=== PATIENT | female | born 1970 | race Caucasian/White ===

== ENCOUNTER 2021-10-29 09:25 | Emergency (ER) | payer SELFPAY ==
[2021-10-29 09:57] LABS: #Basophils 0.1 10x3/uL (0.0-0.2); #Eosinphils 0.1 10x3/uL (0.0-0.5); #Monocytes 0.5 10x3/uL (0.0-1.1); #Neutrophils 4.1 10x3/uL (1.5-8.4); %Basophils 0.6 % (0.0-2.0); %Eosinophils 1.3 % (0.0-6.0); %Lymphocytes 44.6 % (18.0-47.0); %Monocytes 5.8 % (0.0-10.0); %Neutrophils 47.5 % (40.0-75.0); Mean Corpuscular HGB CONC 33.8 g/dL (32.0-36.0); Mean Corpuscular Volume 85.8 fl (81.6-98.3); Mean Platelet Volume 9.2 fl (7.4-10.4); Platelet Count 266 10x3/uL (150-450); RBC Distribution Width 13.8 % (11.5-14.5); Red Blood Cell (RBC) Count 5.51 10x6/uL (3.90-5.03); White Blood Cell (WBC) Count 8.7 10x3/uL (3.5-10.5)
[2021-10-29] MEDS ORDERED: Aspirin Chewable 81 MG TAB ONE (10:04)
[2021-10-29] MEDS ORDERED: Ketorolac Tromethamine 30 MG/ML VIAL ONE (10:05)
[2021-10-29 10:13] LABS: ALT (SGPT) 26 U/L (8-55); AST (SGOT) 32 U/L (5-34); Albumin 4.7 g/dL (3.5-5.0); Alkaline Phosphatase 94 U/L (40-110); Anion Gap 14 mmol/L (10-20); BUN (Urea Nitrogen) 8 mg/dL (9.8-20.1); Bilirubin, Total 0.5 mg/dL (0.2-1.2); CK (CPK) 45 U/L (29-168); Calc. Creatinine Clearance 0 mL/min (70-130); Calcium 10.2 mg/dL (7.8-10.44); Carbon Dioxide 28 mmol/L (22-29); Chloride 102 mmol/L (98-107); Globulin 2.7 g/dL (2.4-3.5); Glucose 95 mg/dL (70-105); Lipase 42 U/L (8-78); Potassium 4.4 mmol/L (3.5-5.1); Protein, Total 7.4 g/dL (6.0-8.3); Sodium 140 mmol/L (136-145)
== END 2021-10-29 11:20 | disposition home or self-care (01) ==
LOC: CSHERS 09:25
DX: J18.9 Pneumonia, unspecified organism (principal); M19.90 Unspecified osteoarthritis, unspecified site; F17.210 Nicotine dependence, cigarettes, uncomplicated
CPT/HCPCS: 71045; 80053; 82550; 83690; 84484; 85025; 85379; 93005; 94760; 96374; J1885

== ENCOUNTER 2022-02-13 22:31 | Emergency (ER) | payer SELFPAY ==
[2022-02-13] MEDS ORDERED: Dexamethasone 4 MG TAB ONE (22:59)
[2022-02-13] MEDS ORDERED: Ciprofloxacin 500 MG TAB PO SCH (23:30)
== END 2022-02-14 00:05 | disposition home or self-care (01) ==
LOC: CSHERS 22:31
DX: H60.92 Unspecified otitis externa, left ear (principal); M19.90 Unspecified osteoarthritis, unspecified site; F17.210 Nicotine dependence, cigarettes, uncomplicated
CPT/HCPCS: 99282; J8540

== ENCOUNTER 2022-03-12 20:51 | Observation (INO) | payer SELFPAY ==
[2022-03-12 21:54] LABS: Mean Corpuscular HGB CONC 35.3 g/dL (32.0-36.0); Mean Corpuscular Hemoglobin 29.3 pg (27.0-33.0); Mean Platelet Volume 9.3 fl (7.4-10.4); Platelet Count 307 10x3/uL (150-450); Red Blood Cell (RBC) Count 5.12 10x6/uL (3.90-5.03); White Blood Cell (WBC) Count 10.7 10x3/uL (3.5-10.5)
[2022-03-12 22:08] LABS: ALT (SGPT) 35 U/L (8-55); AST (SGOT) 32 U/L (5-34); Albumin 4.3 g/dL (3.5-5.0); Alkaline Phosphatase 79 U/L (40-110); Anion Gap 13 mmol/L (10-20); BUN (Urea Nitrogen) 4 mg/dL (9.8-20.1); Bilirubin, Total 0.5 mg/dL (0.2-1.2); Calc. Creatinine Clearance 0 mL/min (70-130); Calcium 9.7 mg/dL (7.8-10.44); Carbon Dioxide 29 mmol/L (22-29); Chloride 101 mmol/L (98-107); Globulin 2.6 g/dL (2.4-3.5); Glucose 86 mg/dL (70-105); Potassium 3.5 mmol/L (3.5-5.1); Protein, Total 6.9 g/dL (6.0-8.3); Sodium 139 mmol/L (136-145)
[2022-03-12 22:18] LABS: MDiff Complete? YES
[2022-03-12 22:21] LABS: Band 3 % (5-11); Eosinophils 2 % (0-10); Lymphocytes 34 % (21-51); Metamyelocyte 1 % (0-0); Monocytes 4 % (0-10); Neutrophil 41 % (42-75); Reactive Lymphocytes 14 % (0-10)
[2022-03-12 22:22] LABS: Platelet Morphology Comment Appears Adequate
[2022-03-12 22:23] LABS: RBC Morphology Normal
[2022-03-12 22:25] LABS: Reflex for Review?? YES
[2022-03-12 22:36] LABS: Bilirubin Neg (Negative); Blood, Urine Negative (Negative); Clarity Clear (Clear); Glucose, Urine (Dipstick) Normal (Negative); Ketone, Urine Negative (Negative); Leukocyte 25 (Negative); Nitrite Negative (Negative); Protein, Urine (Dipstick) Negative (Neg-Trace); Urobilinogen Normal mg/dL (Less than 2)
[2022-03-12 22:43] LABS: Bacteria/HPF Rare-Few HPF (None Seen); RBC/HPF 0-3 HPF (0-3); Squamous Epithelial 0-3 HPF (0-3); WBC/HPF 0-3 HPF (0-3)
[2022-03-12 23:38] LABS: SARS-CoV-2 NAA Rapid Test Not Detected (NotDetected)
[2022-03-12] MEDS ORDERED: Doxycycline 100 MG in Sodium Chloride 0.9% 100 ML IVPB SCH (23:45)
[2022-03-13] MEDS ORDERED: Calcium Carbonate 500 MG ChewTAB PO PRN (00:43)
[2022-03-13] MEDS ORDERED: Acetaminophen 325 MG TAB PO PRN (00:43)
[2022-03-13] MEDS ORDERED: Senokot S 8.6-50 MG TAB PO PRN (00:43)
[2022-03-13] MEDS ORDERED: HYDROcodone/Acetaminophen 5/325 mg Tablet PO PRN (00:43)
[2022-03-13] MEDS ORDERED: Guaifenesin DM 100-10/5 ML UDCUP PO PRN (00:43)
[2022-03-13] MEDS ORDERED: Ondansetron PF 4 MG/2 ML Vial IVP PRN (00:43)
[2022-03-13 01:30] LABS: Troponin I Less than 0.010 ng/mL (< 0.028)
[2022-03-13 01:51] VITALS: BMI 34.7
[2022-03-13 02:07] LABS: Legionella Urinary Ag Negative (Negative); Strep pneumo Urine Ag NEGATIVE (NEGATIVE)
[2022-03-13] MEDS ORDERED: methylPREDNISolone Sod Succ/PF 125 MG/2 ML VIAL IVP SCH (02:30)
[2022-03-13] MEDS ORDERED: hydrOXYzine 25 MG TAB PO PRN (03:17)
[2022-03-13] MEDS ORDERED: Mometasone/Formoterol 200/5 60 PUFF INH SCH (06:30)
[2022-03-13 06:39] VITALS: BP 133/60; TEMP 98.5
[2022-03-13] MEDS ORDERED: Famotidine 20 MG TAB PO SCH (09:00)
[2022-03-13] MEDS ORDERED: Amoxicillin/Potassium Clav 875 MG TAB PO SCH (09:00)
[2022-03-13] MEDS ORDERED: Enoxaparin Sodium 40 MG/0.4 ML SYRINGE SC SCH (09:00)
[2022-03-13] MEDS ORDERED: DULoxetine 30 MG CAP PO SCH (09:00)
[2022-03-13] MEDS ORDERED: Acetylcysteine 800 MG/4 ML VIAL PO SCH (09:00)
[2022-03-13] MEDS ORDERED: DULoxetine 60 MG CAP PO SCH (09:00)
[2022-03-13] MEDS ORDERED: methylPREDNISolone Sod Succ 40 MG VIAL IVP SCH (09:00)
[2022-03-13] MEDS ORDERED: lamoTRIgine 100 MG TAB PO SCH (09:00)
[2022-03-13] MEDS ORDERED: risperiDONE 1 MG TAB PO SCH (09:00)
[2022-03-13] MEDS ORDERED: guaiFENesin ER 600 MG TAB PO SCH (09:00)
[2022-03-13] MEDS ORDERED: traZODone HCl 150 MG TAB PO SCH (21:00)
== END 2022-03-13 06:15 | disposition left against medical advice (07) ==
LOC: CSHERS 20:51 → CSHTELE 03-13 01:06
PROVIDERS: ADMIT Student in an Organized Health Care Education/Training Program; ATTEND Student in an Organized Health Care Education/Training Program
DX: J20.9 Acute bronchitis, unspecified (principal); R09.02 Hypoxemia; F17.210 Nicotine dependence, cigarettes, uncomplicated; M19.90 Unspecified osteoarthritis, unspecified site; Z53.29 Procedure and treatment not carried out because of patient's decision for other reasons; Z79.899 Other long term (current) drug therapy; Z88.1 Allergy status to other antibiotic agents; Z88.2 Allergy status to sulfonamides; Z88.8 Allergy status to other drugs, medicaments and biological substances; Z28.310 Unvaccinated for COVID-19; Z28.9 Immunization not carried out for unspecified reason; Z20.822 Contact with and (suspected) exposure to COVID-19
CPT/HCPCS: 36415; 71045; 80053; 81003; 81015; 83605; 83880; 84145; 84484; 85025; 85060; 85379; 87449; 87804; 87899; 93005; 94640; 96365; 96375; G0378; J2930; J3490; J7620; U0002

== ENCOUNTER 2022-10-13 14:41 | Emergency (ER) | payer SELFPAY ==
[2022-10-13] MEDS ORDERED: Iopamidol 300 61% 100 ML VIAL FS ONE (15:12)
[2022-10-13 16:13] LABS: #Eosinphils 0.1 10x3/uL (0.0-0.5); #Monocytes 0.5 10x3/uL (0.0-1.1); %Basophils 0.4 % (0.0-2.0); %Eosinophils 1.2 % (0.0-6.0); %Lymphocytes 42.9 % (18.0-47.0); %Monocytes 4.7 % (0.0-10.0); %Neutrophils 50.5 % (40.0-75.0); Hemoglobin 15.1 g/dL (12.0-15.5); Mean Corpuscular HGB CONC 34.2 g/dL (32.0-36.0); Mean Corpuscular Hemoglobin 29.6 pg (27.0-33.0); Mean Corpuscular Volume 86.5 fl (81.6-98.3); Platelet Count 246 10x3/uL (150-450); RBC Distribution Width 13.6 % (11.5-14.5); White Blood Cell (WBC) Count 9.9 10x3/uL (3.5-10.5)
[2022-10-13 16:31] LABS: ALT (SGPT) 46 U/L (8-55); AST (SGOT) 44 U/L (5-34); Albumin 4.5 g/dL (3.5-5.0); Alkaline Phosphatase 98 U/L (40-110); Anion Gap 18 mmol/L (10-20); BUN (Urea Nitrogen) 9 mg/dL (9.8-20.1); Bilirubin, Total 0.4 mg/dL (0.2-1.2); Calc. Creatinine Clearance 0 mL/min (70-130); Calcium 10.3 mg/dL (7.8-10.44); Carbon Dioxide 26 mmol/L (22-29); Chloride 101 mmol/L (98-107); Estimated GFR 96; Globulin 2.6 g/dL (2.4-3.5); Glucose 88 mg/dL (70-105); Lipase 53 U/L (8-78); Potassium 3.9 mmol/L (3.5-5.1); Protein, Total 7.1 g/dL (6.0-8.3); Sodium 141 mmol/L (136-145)
[2022-10-13 17:04] LABS: Bilirubin Neg (Negative); Blood, Urine Negative (Negative); Glucose, Urine (Dipstick) Normal (Negative); Ketone, Urine Negative (Negative); Leukocyte Negative (Negative); Nitrite Negative (Negative); Protein, Urine (Dipstick) Negative (Neg-Trace); Urobilinogen Normal mg/dL (Less than 2)
[2022-10-13 17:05] LABS: Clarity Clear (Clear)
== END 2022-10-13 17:59 | disposition home or self-care (01) ==
LOC: CSHERS 14:41
DX: K86.2 Cyst of pancreas (principal); R53.81 Other malaise; F17.210 Nicotine dependence, cigarettes, uncomplicated
CPT/HCPCS: 36416; 70450; 71045; 74177; 80053; 81003; 83690; 84484; 85025; 93005; Q9967

== ENCOUNTER 2022-10-24 21:36 | Emergency (ER) | payer SELFPAY | END 2022-10-25 00:51 | disposition home or self-care (01) | LOC: CSHERS 21:36 | DX: K86.2 Cyst of pancreas (principal); F17.210 Nicotine dependence, cigarettes, uncomplicated | CPT/HCPCS: 99284 ==

== ENCOUNTER 2022-12-23 11:49 | Emergency (ER) | payer SELFPAY ==
[2022-12-23 12:46] LABS: #Eosinphils 0.1 10x3/uL (0.0-0.5); #Monocytes 0.5 10x3/uL (0.0-1.1); #Neutrophils 3.4 10x3/uL (1.5-8.4); %Basophils 0.5 % (0.0-2.0); %Eosinophils 1.2 % (0.0-6.0); %Lymphocytes 44.5 % (18.0-47.0); %Monocytes 6.6 % (0.0-10.0); %Neutrophils 46.9 % (40.0-75.0); Hemoglobin 13.6 g/dL (12.0-15.5); Mean Corpuscular HGB CONC 33.1 g/dL (32.0-36.0); Mean Corpuscular Hemoglobin 30.2 pg (27.0-33.0); Mean Corpuscular Volume 91.1 fl (81.6-98.3); Mean Platelet Volume 9.9 fl (7.4-10.4); Platelet Count 276 10x3/uL (150-450); RBC Distribution Width 14.2 % (11.5-14.5); Red Blood Cell (RBC) Count 4.51 10x6/uL (3.90-5.03); White Blood Cell (WBC) Count 7.3 10x3/uL (3.5-10.5)
[2022-12-23] MEDS ORDERED: Dicyclomine 20 MG/2 ML VIAL ONE (13:05)
[2022-12-23] MEDS ORDERED: Ondansetron PF 4 MG/2 ML Vial ONE (13:05)
[2022-12-23 13:10] LABS: ALT (SGPT) 36 U/L (8-55); AST (SGOT) 39 U/L (5-34); Albumin 4.2 g/dL (3.5-5.0); Alkaline Phosphatase 99 U/L (40-110); Anion Gap 15 mmol/L (10-20); BUN (Urea Nitrogen) 4 mg/dL (9.8-20.1); Bilirubin, Total 0.3 mg/dL (0.2-1.2); Calc. Creatinine Clearance 0 mL/min (70-130); Carbon Dioxide 31 mmol/L (22-29); Chloride 101 mmol/L (98-107); Estimated GFR 104; Globulin 2.8 g/dL (2.4-3.5); Glucose 104 mg/dL (70-105); Lipase 44 U/L (8-78); Potassium 4.3 mmol/L (3.5-5.1); Sodium 143 mmol/L (136-145)
[2022-12-23 13:19] LABS: Bilirubin Neg (Negative); Blood, Urine 250 (Negative); Clarity Slightly Cloudy (Clear); Glucose, Urine (Dipstick) Normal (Negative); Ketone, Urine Negative (Negative); Leukocyte 25 (Negative); Nitrite Negative (Negative); Protein, Urine (Dipstick) Negative (Neg-Trace); Specific Gravity, Urine 1.005 (1.005-1.030); Urobilinogen Normal mg/dL (Less than 2)
[2022-12-23 13:53] LABS: WBC/HPF 0-3 HPF (0-3)
[2022-12-23 13:54] LABS: Bacteria/HPF 1+ HPF (None Seen)
[2022-12-23] MEDS ORDERED: Fentanyl 100 MCG/2 ML VIAL ONE (15:10)
[2022-12-23] MEDS ORDERED: Iopamidol 300 61% 100 ML VIAL FS ONE (15:42)
[2022-12-23 15:43] LABS: Lactic Acid 1.4 mmol/L (0.5-2.2)
== END 2022-12-23 15:20 | disposition home or self-care (01) ==
LOC: CSHERS 11:49
DX: N30.00 Acute cystitis without hematuria (principal); F17.210 Nicotine dependence, cigarettes, uncomplicated
CPT/HCPCS: 36415; 74177; 80053; 81003; 81015; 83605; 83690; 85025; 87086; 96361; 96372; 96374; 96375; J2405; J3010; Q9967

== ENCOUNTER 2022-12-31 19:45 | Emergency (ER) | payer SELFPAY ==
[2022-12-31 21:13] LABS: Bilirubin Neg (Negative); Blood, Urine 250 (Negative); Clarity Clear (Clear); Glucose, Urine (Dipstick) Normal (Negative); Ketone, Urine Negative (Negative); Leukocyte 100 (Negative); Nitrite Negative (Negative); Protein, Urine (Dipstick) 100 mg/dl (Neg-Trace); Urobilinogen Normal mg/dL (Less than 2)
[2022-12-31 21:24] LABS: Bacteria/HPF Rare-Few HPF (None Seen); Mucous/LPF Rare LPF (<2+); Squamous Epithelial 0-3 HPF (0-3); WBC/HPF 0-3 HPF (0-3)
[2022-12-31 21:49] LABS: #Basophils 0.1 10x3/uL (0.0-0.2); #Eosinphils 0.1 10x3/uL (0.0-0.5); #Monocytes 0.5 10x3/uL (0.0-1.1); #Neutrophils 4.2 10x3/uL (1.5-8.4); %Basophils 0.5 % (0.0-2.0); %Eosinophils 1.5 % (0.0-6.0); %Lymphocytes 46.8 % (18.0-47.0); %Neutrophils 45.9 % (40.0-75.0); Hemoglobin 14.8 g/dL (12.0-15.5); Mean Corpuscular HGB CONC 33.9 g/dL (32.0-36.0); Mean Corpuscular Hemoglobin 30.2 pg (27.0-33.0); Mean Corpuscular Volume 89.2 fl (81.6-98.3); Mean Platelet Volume 9.3 fl (7.4-10.4); Platelet Count 269 10x3/uL (150-450); RBC Distribution Width 14.3 % (11.5-14.5); White Blood Cell (WBC) Count 9.1 10x3/uL (3.5-10.5)
[2022-12-31 22:03] LABS: ALT (SGPT) 36 U/L (8-55); AST (SGOT) 39 U/L (5-34); Albumin 4.4 g/dL (3.5-5.0); Alkaline Phosphatase 95 U/L (40-110); Anion Gap 15 mmol/L (10-20); BUN (Urea Nitrogen) 6 mg/dL (9.8-20.1); Bilirubin, Total 0.3 mg/dL (0.2-1.2); Calc. Creatinine Clearance 0 mL/min (70-130); Calcium 10.1 mg/dL (7.8-10.44); Carbon Dioxide 31 mmol/L (22-29); Chloride 100 mmol/L (98-107); Estimated GFR 97; Glucose 82 mg/dL (70-105); Lipase 45 U/L (8-78); Potassium 4.1 mmol/L (3.5-5.1); Protein, Total 7.4 g/dL (6.0-8.3); Sodium 142 mmol/L (136-145)
[2022-12-31] MEDS ORDERED: Morphine 4 MG/ML VIAL ONE (22:48)
== END 2022-12-31 23:10 | disposition home or self-care (01) ==
LOC: CSHERS 19:45
DX: R10.30 Lower abdominal pain, unspecified (principal); R31.9 Hematuria, unspecified; F17.210 Nicotine dependence, cigarettes, uncomplicated
CPT/HCPCS: 74177; 80053; 81003; 81015; 83690; 85025; 87086; 96374; J2270

== ENCOUNTER 2023-01-13 06:09 | Emergency (ER) | payer SELFPAY ==
[2023-01-13] MEDS ORDERED: Dexamethasone 10 MG/ML VIAL ONE (07:29)
[2023-01-13] MEDS ORDERED: Ibuprofen 200 MG TAB ONE (08:35)
[2023-01-13 08:52] LABS: SARS-CoV-2 NAA Rapid Test Not Detected (NotDetected)
== END 2023-01-13 08:36 | disposition home or self-care (01) ==
LOC: CSHERS 06:09
DX: B34.9 Viral infection, unspecified (principal); J02.9 Acute pharyngitis, unspecified; Z20.822 Contact with and (suspected) exposure to COVID-19; F17.210 Nicotine dependence, cigarettes, uncomplicated
CPT/HCPCS: 71045; 87081; 87430; J1100

== ENCOUNTER 2023-04-01 14:19 | Emergency (ER) | payer SELFPAY ==
[2023-04-01] MEDS ORDERED: Dexamethasone 10 MG/ML VIAL ONE (15:11)
== END 2023-04-01 15:15 | disposition home or self-care (01) ==
LOC: CSHERS 14:19
DX: J02.0 Streptococcal pharyngitis (principal); H60.92 Unspecified otitis externa, left ear; H73.92 Unspecified disorder of tympanic membrane, left ear; F17.210 Nicotine dependence, cigarettes, uncomplicated
CPT/HCPCS: 99282; J1100

== ENCOUNTER 2023-04-06 15:12 | Emergency (ER) | payer SELFPAY ==
[~2023-04-06 15:12] MED LIST: Iopamidol 300 61% 100 ML VIAL FS ONE
[2023-04-06] MEDS ORDERED: Morphine 4 MG/ML VIAL ONE (16:48)
[2023-04-06] MEDS ORDERED: cefTRIAXone (ROCEPHIN) 1 GM VIAL ONE (16:48)
[2023-04-06] MEDS ORDERED: Ondansetron PF 4 MG/2 ML Vial ONE (16:48)
[2023-04-06] MEDS ORDERED: Dexamethasone 10 MG/ML VIAL ONE (16:48)
[2023-04-06 16:57] LABS: #Eosinphils 0.2 10x3/uL (0.0-0.5); #Monocytes 0.5 10x3/uL (0.0-1.1); #Neutrophils 4.4 10x3/uL (1.5-8.4); %Basophils 0.4 % (0.0-2.0); %Eosinophils 1.6 % (0.0-6.0); %Lymphocytes 45.7 % (18.0-47.0); %Monocytes 5.3 % (0.0-10.0); %Neutrophils 46.9 % (40.0-75.0); Hemoglobin 15.6 g/dL (12.0-15.5); Mean Corpuscular HGB CONC 33.9 g/dL (32.0-36.0); Mean Corpuscular Hemoglobin 29.5 pg (27.0-33.0); Mean Corpuscular Volume 87.1 fl (81.6-98.3); Mean Platelet Volume 9.1 fl (7.4-10.4); Platelet Count 261 10x3/uL (150-450); RBC Distribution Width 11.9 % (11.5-14.5); Red Blood Cell (RBC) Count 5.28 10x6/uL (3.90-5.03); White Blood Cell (WBC) Count 9.3 10x3/uL (3.5-10.5)
[2023-04-06 17:01] LABS: ALT (SGPT) 44 U/L (8-55); AST (SGOT) 42 U/L (5-34); Albumin 4.4 g/dL (3.5-5.0); Alkaline Phosphatase 98 U/L (40-110); Anion Gap 16 mmol/L (10-20); BUN (Urea Nitrogen) 6 mg/dL (9.8-20.1); Bilirubin, Total 0.4 mg/dL (0.2-1.2); Calc. Creatinine Clearance 0 mL/min (70-130); Carbon Dioxide 29 mmol/L (22-29); Chloride 101 mmol/L (98-107); Estimated GFR 91; Globulin 2.8 g/dL (2.4-3.5); Glucose 74 mg/dL (70-105); Protein, Total 7.2 g/dL (6.0-8.3); Sodium 142 mmol/L (136-145)
== END 2023-04-06 17:38 | disposition home or self-care (01) ==
LOC: CSHERS 15:12
DX: J02.9 Acute pharyngitis, unspecified (principal); F17.210 Nicotine dependence, cigarettes, uncomplicated
CPT/HCPCS: 70491; 80053; 85025; 96374; 96375; J0696; J1100; J2270; J2405; Q9967

== ENCOUNTER 2023-04-30 15:03 | Emergency (ER) | payer SELFPAY | END 2023-04-30 17:56 | disposition home or self-care (01) | LOC: CSHERS 15:03 | DX: M13.89 Other specified arthritis, multiple sites (principal); M54.50 Low back pain, unspecified; F17.210 Nicotine dependence, cigarettes, uncomplicated | CPT/HCPCS: 99283 ==

== ENCOUNTER 2023-06-13 19:29 | Emergency (ER) | payer SELFPAY ==
[2023-06-13] MEDS ORDERED: Acetaminophen 500 MG TAB ONE (20:13)
[2023-06-13 20:16] LABS: #Eosinphils 0.2 10x3/uL (0.0-0.5); #Monocytes 0.5 10x3/uL (0.0-1.1); #Neutrophils 3.5 10x3/uL (1.5-8.4); %Basophils 0.5 % (0.0-2.0); %Eosinophils 2.1 % (0.0-6.0); %Monocytes 5.2 % (0.0-10.0); ALT (SGPT) 38 U/L (8-55); AST (SGOT) 42 U/L (5-34); Albumin 4.2 g/dL (3.5-5.0); Alkaline Phosphatase 96 U/L (40-110); Anion Gap 13 mmol/L (10-20); BUN (Urea Nitrogen) 6 mg/dL (9.8-20.1); Bilirubin, Total 0.4 mg/dL (0.2-1.2); Calc. Creatinine Clearance 0 mL/min (70-130); Calcium 9.6 mg/dL (7.8-10.44); Carbon Dioxide 31 mmol/L (22-29); Chloride 100 mmol/L (98-107); Estimated GFR 89; Globulin 2.6 g/dL (2.4-3.5); Glucose 109 mg/dL (70-105); Hematocrit 43.8 % (34.9-44.5); Hemoglobin 14.5 g/dL (12.0-15.5); Mean Corpuscular HGB CONC 33.1 g/dL (32.0-36.0); Mean Corpuscular Hemoglobin 28.7 pg (27.0-33.0); Mean Corpuscular Volume 86.6 fl (81.6-98.3); Mean Platelet Volume 9.4 fl (7.4-10.4); Platelet Count 242 10x3/uL (150-450); Potassium 3.7 mmol/L (3.5-5.1); Protein, Total 6.8 g/dL (6.0-8.3); RBC Distribution Width 12.7 % (11.5-14.5); Red Blood Cell (RBC) Count 5.06 10x6/uL (3.90-5.03); Sodium 140 mmol/L (136-145); White Blood Cell (WBC) Count 8.8 10x3/uL (3.5-10.5)
[2023-06-13 20:21] LABS: Troponin I Less than 0.010 ng/mL (< 0.028)
[2023-06-13] MEDS ORDERED: Ipratropium/Albuterol 3 ML NEB ONE (20:32)
[2023-06-13] MEDS ORDERED: Dexamethasone 10 MG/ML VIAL ONE (20:32)
== END 2023-06-13 22:43 | disposition home or self-care (01) ==
LOC: CSHERS 19:29
DX: J20.9 Acute bronchitis, unspecified (principal); F17.210 Nicotine dependence, cigarettes, uncomplicated
CPT/HCPCS: 36415; 71045; 80053; 84484; 85025; 85379; 93005; 94640; 94760; 96372; J1100; J7620

== ENCOUNTER 2023-07-24 10:17 | Emergency (ER) | payer SELFPAY ==
[2023-07-24 11:00] LABS: #Basophils 0.1 10x3/uL (0.0-0.2); #Eosinphils 0.1 10x3/uL (0.0-0.5); #Monocytes 0.6 10x3/uL (0.0-1.1); #Neutrophils 4.3 10x3/uL (1.5-8.4); %Basophils 0.7 % (0.0-2.0); %Eosinophils 1.3 % (0.0-6.0); %Monocytes 6.3 % (0.0-10.0); %Neutrophils 43.5 % (40.0-75.0); Hematocrit 46.4 % (34.9-44.5); Hemoglobin 15.5 g/dL (12.0-15.5); Mean Corpuscular HGB CONC 33.4 g/dL (32.0-36.0); Mean Corpuscular Hemoglobin 28.4 pg (27.0-33.0); Mean Platelet Volume 9.5 fl (7.4-10.4); Platelet Count 245 10x3/uL (150-450); RBC Distribution Width 12.6 % (11.5-14.5); Red Blood Cell (RBC) Count 5.46 10x6/uL (3.90-5.03); White Blood Cell (WBC) Count 9.9 10x3/uL (3.5-10.5)
[2023-07-24 11:10] LABS: ALT (SGPT) 52 U/L (8-55); AST (SGOT) 52 U/L (5-34); Albumin 4.5 g/dL (3.5-5.0); Alkaline Phosphatase 99 U/L (40-110); Anion Gap 15 mmol/L (10-20); BUN (Urea Nitrogen) 5 mg/dL (9.8-20.1); Bilirubin, Total 0.4 mg/dL (0.2-1.2); Calc. Creatinine Clearance 0 mL/min (70-130); Calcium 10.4 mg/dL (7.8-10.44); Carbon Dioxide 28 mmol/L (22-29); Chloride 99 mmol/L (98-107); Estimated GFR 95; Globulin 3.1 g/dL (2.4-3.5); Glucose 102 mg/dL (70-105); Lipase 47 U/L (8-78); Potassium 3.8 mmol/L (3.5-5.1); Protein, Total 7.6 g/dL (6.0-8.3); Sodium 138 mmol/L (136-145)
[2023-07-24 12:42] LABS: Bilirubin Neg (Negative); Blood, Urine Negative (Negative); Clarity Clear (Clear); Glucose, Urine (Dipstick) Normal (Negative); Ketone, Urine Negative (Negative); Leukocyte Negative (Negative); Nitrite Negative (Negative); Protein, Urine (Dipstick) Negative (Neg-Trace); Specific Gravity, Urine 1.005 (1.005-1.030); Urobilinogen Normal mg/dL (Less than 2)
[2023-07-24 13:31] LABS: Bacteria/HPF 1+ HPF (None Seen); CAUTI Indications for Culture Fever or rigors; RBC/HPF None Seen HPF (0-3); Squamous Epithelial 0-3 HPF (0-3); WBC/HPF 0-3 HPF (0-3)
[2023-07-24 13:33] LABS: Urine Culture Reflex No No
== END 2023-07-24 13:11 | disposition home or self-care (01) ==
LOC: CSHERS 10:17
DX: J20.9 Acute bronchitis, unspecified (principal); M19.90 Unspecified osteoarthritis, unspecified site; F17.210 Nicotine dependence, cigarettes, uncomplicated; Z79.899 Other long term (current) drug therapy
CPT/HCPCS: 71045; 80053; 81001; 83690; 85025; 93005; 94760

== ENCOUNTER 2023-10-16 05:21 | Emergency (ER) | payer SELFPAY ==
[2023-10-16] MEDS ORDERED: Benzonatate 100 MG CAP ONE (06:05)
[2023-10-16] MEDS ORDERED: Acetaminophen 500 MG TAB ONE (06:05)
[2023-10-16 06:12] LABS: #Basophils 0.1 10x3/uL (0.0-0.2); #Eosinphils 0.2 10x3/uL (0.0-0.5); #Monocytes 0.6 10x3/uL (0.0-1.1); #Neutrophils 3.6 10x3/uL (1.5-8.4); %Basophils 0.6 % (0.0-2.0); %Lymphocytes 54.6 % (18.0-47.0); %Neutrophils 36.6 % (40.0-75.0); Hematocrit 45.2 % (34.9-44.5); Hemoglobin 15.1 g/dL (12.0-15.5); Mean Corpuscular HGB CONC 33.4 g/dL (32.0-36.0); Mean Corpuscular Hemoglobin 28.8 pg (27.0-33.0); Mean Corpuscular Volume 86.1 fl (81.6-98.3); Mean Platelet Volume 9.5 fl (7.4-10.4); Platelet Count 263 10x3/uL (150-450); RBC Distribution Width 13.5 % (11.5-14.5); Red Blood Cell (RBC) Count 5.25 10x6/uL (3.90-5.03); White Blood Cell (WBC) Count 9.8 10x3/uL (3.5-10.5)
[2023-10-16] MEDS ORDERED: guaiFENesin ER 600 MG TAB PO SCH (06:15)
[2023-10-16 06:26] LABS: ALT (SGPT) 50 U/L (8-55); AST (SGOT) 44 U/L (5-34); Albumin 4.2 g/dL (3.5-5.0); Alkaline Phosphatase 99 U/L (40-110); Anion Gap 15 mmol/L (10-20); BUN (Urea Nitrogen) 6 mg/dL (9.8-20.1); Bilirubin, Total 0.4 mg/dL (0.2-1.2); Calc. Creatinine Clearance 0 mL/min (70-130); Calcium 9.8 mg/dL (7.8-10.44); Carbon Dioxide 30 mmol/L (22-29); Chloride 102 mmol/L (98-107); Estimated GFR 84; Globulin 2.7 g/dL (2.4-3.5); Glucose 123 mg/dL (70-105); Lipase 53 U/L (8-78); Protein, Total 6.9 g/dL (6.0-8.3); Sodium 143 mmol/L (136-145)
[2023-10-16 06:29] LABS: SARS-CoV-2 NAA Rapid Test Not Detected (NotDetected)
[2023-10-16 06:32] LABS: Troponin I Less than 0.010 ng/mL (< 0.028)
[2023-10-16] MEDS ORDERED: predniSONE 20 MG TAB ONE (06:44)
[2023-10-16] MEDS ORDERED: Doxycycline 100 MG CAP PO SCH (06:45)
== END 2023-10-16 06:58 | disposition home or self-care (01) ==
LOC: CSHERS 05:21 → EEVIPCON 05:21 → CSHERS 06:58
DX: J45.909 Unspecified asthma, uncomplicated (principal); F17.210 Nicotine dependence, cigarettes, uncomplicated
CPT/HCPCS: 71045; 80053; 83690; 83880; 84484; 85025; 93005; J7512

== ENCOUNTER 2024-07-06 14:05 | Emergency (ER) | payer SELFPAY ==
[2024-07-06] MEDS ORDERED: traMADol HCl 50 MG TAB ONE (15:21)
[2024-07-06] MEDS ORDERED: Lidocaine 4% Patch ONE (15:21)
== END 2024-07-06 16:00 | disposition home or self-care (01) ==
LOC: CSHERS 14:05
DX: M25.461 Effusion, right knee (principal); M25.551 Pain in right hip; M25.562 Pain in left knee; F17.210 Nicotine dependence, cigarettes, uncomplicated; W18.30XA Fall on same level, unspecified, initial encounter; Y93.01 Activity, walking, marching and hiking
CPT/HCPCS: 99283

== ENCOUNTER 2025-05-12 16:45 | Emergency (ER) | payer SELFPAY ==
[2025-05-12] MEDS ORDERED: Cephalexin 250 MG CAP ONE (18:50)
[2025-05-12] MEDS ORDERED: HYDROcodone/Acetaminophen 5/325 mg Tablet ONE (18:50)
== END 2025-05-12 18:41 | disposition home or self-care (01) ==
LOC: CSHERS 16:45
DX: L03.116 Cellulitis of left lower limb (principal); F17.210 Nicotine dependence, cigarettes, uncomplicated; Z79.899 Other long term (current) drug therapy
CPT/HCPCS: 99283

== ENCOUNTER 2025-06-27 13:29 | Emergency (ER) | payer SELFPAY ==
[2025-06-27 14:56] LABS: Glucose, Urine (Dipstick) Normal (Negative); Leukocyte Negative (Negative); Protein, Urine (Dipstick) 15 mg/dl (Neg-Trace); Specific Gravity, Urine 1.010 (1.005-1.030)
[2025-06-27 15:06] LABS: Bacteria/HPF Rare-Few HPF (None Seen); CAUTI Indications for Culture Dysuria,urgency,freq; RBC/HPF None Seen HPF (0-3); Urine Culture Reflex No No; WBC/HPF None Seen HPF (0-3)
[2025-06-27 15:16] LABS: #Basophils 0.03 10x3/uL (0.0-0.2); #Eosinophils 0.10 10x3/uL (0.0-0.5); #Monocytes 0.41 10x3/uL (0.0-1.1); #Neutrophils 3.16 10x3/uL (1.5-8.4); %Basophils 0.4 % (0.0-2.0); %Eosinophils 1.2 % (0.0-6.0); %Lymphocytes 56.1 % (18.0-47.0); %Monocytes 4.9 % (0.0-10.0); %Neutrophils 37.3 % (40.0-75.0); Hematocrit 44.0 % (34.9-44.5); Hemoglobin 14.4 g/dL (12.0-15.5); Mean Corpuscular Hemoglobin 27.7 pg (27.0-33.0); Mean Corpuscular Volume 84.8 fL (81.6-98.3); Platelet Count 286 10x3/uL (150-450); Red Blood Cell (RBC) Count 5.19 10x6/uL (3.90-5.03); White Blood Cell (WBC) Count 8.45 10x3/uL (3.5-10.5)
[2025-06-27 15:24] LABS: ALT (SGPT) 16 U/L (Less than 34); AST (SGOT) 32 U/L (11-34); Albumin 3.8 g/dL (3.1-4.5); Alkaline Phosphatase 98 U/L (40-110); Anion Gap 13 mmol/L (10-20); BUN (Urea Nitrogen) 8 mg/dL (9.8-20.1); Bilirubin, Total 0.5 mg/dL (0.3-1.2); Calc. Creatinine Clearance 0 mL/min (70-130); Calcium 10.0 mg/dL (7.8-10.44); Carbon Dioxide 30 mmol/L (22-29); Chloride 103 mmol/L (98-107); Globulin 3.2 g/dL (2.4-3.5); Glucose 77 mg/dL (70-105); Magnesium 1.8 mg/dL (1.6-2.6); Potassium 4.6 mmol/L (3.5-5.1); Sodium 141 mmol/L (136-145)
[2025-06-27 15:27] LABS: Troponin I Less than 0.010 ng/mL (< 0.028)
[2025-06-27] MEDS ORDERED: Ondansetron PF 4 MG/2 ML Vial ONE ×2 (15:27→17:12)
[2025-06-27] MEDS ORDERED: Orphenadrine Citrate 60 MG/2 ML VIAL ONE (17:12)
== END 2025-06-27 14:25 | disposition home or self-care (01) ==
LOC: CSHERS 13:29
DX: R53.83 Other fatigue (principal); M79.7 Fibromyalgia; R53.1 Weakness; R29.700 NIHSS score 0; F17.210 Nicotine dependence, cigarettes, uncomplicated; Z55.6 Problems related to health literacy
CPT/HCPCS: 36415; 80053; 81001; 83735; 83880; 84443; 84484; 85025; 93005; 96372; 96374; 96375; 96376; J2360; J2919